=== PATIENT | male | born 1990 | race Caucasian/White ===

== ENCOUNTER 2018-07-25 22:57 | Inpatient (IN) | payer OTHER ==
--- NOTE | 2018-07-25 23:11 | EDPHY ---
H & P Time Seen by Provider: 07/25/18 23:03 HPI/ROS: Chief Complaint: Suicidal ideation, overdose HPI: 28-year-old male with a history of depression and feelings of hopelessness climbed up [place] this afternoon and took 20, 10 mg Vicodin tablets that he had taken from his grandfather. Patient states he took these at approximately 4:00 in the afternoon. This was an attempted suicide. Denies any other ingestions. He does states that he did count tablets. EMS was called and patient was brought down by [employer] rescue. Patient has been placed on a mental health hold by the [facility]. EMS did give a 0.25 of Narcan due to the patient's somnolence and he has been awake, alert and answering questions. Denies any other ingestions. Has a history of depression. He does take citalopram. Does not have a counselor or psychiatrist. States that he took these because he is "in a lot of pain" and does not want to be a burden to his family. ROS: 10 systems were reviewed and were negative except those elements noted in the HPI. PMH: Denies Social History: No smoking, occasional alcohol, no recreational drug use Family History: non-contributory Physical Exam: Gen: Awake, Alert, blunted affect HEENT: Nose: no rhinorrhea Eyes: PERRLA, EOMI Mouth: Moist mucosa Neck: Supple, no JVD Chest: nontender, lungs clear to auscultation Heart: S1, S2 normal, no murmur Abd: Soft, non-tender, no guarding Back: no CVA tenderness, no midline tenderness Ext: no edema, non-tender Skin: no rash Neuro: CN II-XII intact, Sensation grossly intact, Strength 5/5 in bilateral upper and lower extremities (Homer Santillan) Constitutional: Initial Vital Signs Temperature (C) 36.5 C 07/25/18 23:01 Heart Rate 82 07/25/18 23:01 Respiratory Rate 17 07/25/18 23:01 Blood Pressure 155/112 H 07/25/18 23:01 O2 Sat (%) 97 07/25/18 23:01 O2 Delivery Mode Room Air Allergies/Adverse Reactions: No Known Allergies Allergy (Verified 07/26/18 08:23) Home Medications: Medication Instructions Recorded Citalopram [CeleXA] 20 mg PO DAILY 07/25/18 Ascorbic Acid [Vitamin C 500 mg 500 mg PO DAILY 07/26/18 (*)] Glucosamine Sulfate [Glucosamine 500 mg PO DAILY 07/26/18 Sulfate 500 MG (*)] Multivitamins [Multivitamin (*)] 1 each PO DAILY 07/26/18 Calmar-3 Fatty Acids [Fish Oil 1000 1,000 mg PO DAILY 07/26/18 mg (*)] Vitamin B Complex [Vitamin B 1 each PO DAILY 07/26/18 Complex (OTC)] Medical Decision Making ED Course/Re-evaluation: 28-year-old suicidal male with a Vicodin ingestion 7 hr prior to arrival. Patient is very coughing about this time of ingestion. His 7 hr level is 40. The cut off on the Mia Cruz nomogram at hours is 90. He is well within the safe limits. A repeat Tylenol level less than 10. No evidence of toxicity. Patient is medically cleared for mental health evaluation. [address] patient signed out to Dr. Magana pending mental health evaluation. No issues during my care of this patient overnight. (Homer Santillan) Other Provider: Care assumed at 0642 ; evaluated by Dr. Santillan last night for overdose and per him deemed clinically stable for psychiatric evaluation and treatment, no further diagnostics or therapeutics. Plan this morning for mental health evaluation, on a mental health hold. 800: The patient will be transferred to [facility] for inpatient psychiatric hospital bed not available at this facility, in stable condition; accepting physician is Dr. Jose Haynes. EMTALA form completed. (Augie Magana) - Data Points Laboratory Results: Laboratory Results 07/25/18 23:16 07/25/18 23:16 07/26/18 07/26/18 07/25/18 04:00 03:10 23:16 WBC RBC Hgb Hct MCV MCH MCHC RDW Plt Count MPV Neut % (Auto) Lymph % (Auto) Burke % (Auto) Eos % (Auto) Baso % (Auto) Nucleat RBC Rel Count Absolute Neuts (auto) Absolute Lymphs (auto) Absolute Monos (auto) Absolute Eos (auto) Absolute Basos (auto) Absolute Nucleated RBC Immature Gran % Immature Gran # Sodium 142 mEq/L mEq/L (135-145) Potassium 4.0 mEq/L mEq/L (3.5-5.2) Chloride 105 mEq/L mEq/L (97-110) Carbon Dioxide 23 mEq/l mEq/l (22-31) Anion Gap 14 mEq/L mEq/L (6-14) BUN 15 mg/dL mg/dL (7-23) Creatinine 1.2 mg/dL mg/dL (0.7-1.3) Estimated GFR > 60 Glucose 135 mg/dL H mg/dL (70-100) Calcium 9.7 mg/dL mg/dL (8.5-10.4) Urine Opiates Screen NON-NEGATIVE H (NEGATIVE) Acetaminophen < 10 mcg/mL L mcg/mL 40 mcg/mL H mcg/mL (10-30) (10-30) Urine Barbiturates NEGATIVE (NEGATIVE) Ur Phencyclidine Scrn NEGATIVE (NEGATIVE) Ur Amphetamine Screen NEGATIVE (NEGATIVE) U Benzodiazepines Scrn NEGATIVE (NEGATIVE) Urine Cocaine Screen NEGATIVE (NEGATIVE) U Marijuana (THC) Screen NEGATIVE (NEGATIVE) Ethyl Alcohol < 10 mg/dL mg/dL (0-10) 07/25/18 23:16 WBC 12.98 10^3/uL H 10^3/uL (3.80-9.50) RBC 5.24 10^6/uL 10^6/uL (4.40-6.38) Hgb 16.1 g/dL g/dL (13.7-17.5) Hct 48.0 % % (40.0-51.0) MCV 91.6 fL fL (81.5-99.8) MCH 30.7 pg pg (27.9-34.1) MCHC 33.5 g/dL g/dL (32.4-36.7) RDW 12.9 % % (11.5-15.2) Plt Count 205 10^3/uL 10^3/uL (150-400) MPV 10.1 fL fL (8.7-11.7) Neut % (Auto) 82.5 % H % (39.3-74.2) Lymph % (Auto) 10.1 % L % (15.0-45.0) Burke % (Auto) 5.9 % % (4.5-13.0) Eos % (Auto) 0.5 % L % (0.6-7.6) Baso % (Auto) 0.5 % % (0.3-1.7) Nucleat RBC Rel Count 0.0 % % (0.0-0.2) Absolute Neuts (auto) 10.72 10^3/uL H 10^3/uL (1.70-6.50) Absolute Lymphs (auto) 1.31 10^3/uL 10^3/uL (1.00-3.00) Absolute Monos (auto) 0.76 10^3/uL 10^3/uL (0.30-0.80) Absolute Eos (auto) 0.06 10^3/uL 10^3/uL (0.03-0.40) Absolute Basos (auto) 0.06 10^3/uL 10^3/uL (0.02-0.10) Absolute Nucleated RBC 0.00 10^3/uL 10^3/uL (0-0.01) Immature Gran % 0.5 % % (0.0-1.1) Immature Gran # 0.07 10^3/uL 10^3/uL (0.00-0.10) Sodium Potassium Chloride Carbon Dioxide Anion Gap BUN Creatinine Estimated GFR Glucose Calcium Urine Opiates Screen Acetaminophen Urine Barbiturates Ur Phencyclidine Scrn Ur Amphetamine Screen U Benzodiazepines Scrn Urine Cocaine Screen U Marijuana (THC) Screen Ethyl Alcohol Departure - Departure Disposition: [facility] IP Clinical Impression: Severe major depression, Suicidal ideation Condition: Fair Referrals: Joelle Stroud MD [Medical Doctor] - As per Instructions
[2018-07-25 23:25] LABS: PLATELET COUNT 205 10^3/uL (150-400)
--- NOTE | 2018-07-26 11:01 | ASMTTCLDSP ---
TLC Discharge Disposition Disposition: Answers: Admit Disposition Notes: Notes: Admit 3N. Discharge Concerns/Recommendations: Notes: In consultation with [facility] ED physician, Augie Magana MD and on-call psychiatrist, Jose Haynes MD, both concurred that pt appears to meet 27-65 criteria requiring psychiatric hospitalization as pt appears to be an imminent risk of harm to self due to a mental illness condition. Pt was read the Patient Rights and Responsibilities Statement on 07/26/18 at 0800 hrs, original placed on chart, and was given photocopy of Rights. Pt signed the Patient Rights. Pt was given the 3N prohibited belongings list while in the ED. Was patient given the Answers: Yes Inpatient Behavioral Health Prohibited Belongings List while in the ED? For inpatient Jose Haynes MD admission, the following psychiatrist agreed to accept patient for admission to Behavioral Health ([facility]): Type of Hold: Answers: M1/72-hour Hold Hold initiated by: Answers: Police Date Signed: 07/26/2018 11:01 AM Electronically Signed By:Oneil Perdomo
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
[2018-07-26] MEDS ORDERED: MAGNESIUM HYDROXIDE 30 ML UDCUP PO PRN (11:38)
[2018-07-26] MEDS ORDERED: LORazepam 0.5 MG TAB PO PRN (11:38)
[2018-07-26] MEDS ORDERED: NICOTINE POLACRILEX 2 MG GUM B PRN (11:38)
[2018-07-26] MEDS ORDERED: MAG HYDROX/AL HYDROX/SIMETH 30 ML UDCUP PO PRN (11:38)
[2018-07-26] MEDS: ARIPiprazole 2 MG TAB PO SCH (12:34)
[2018-07-26] MEDS: ESCITALOPRAM OXALATE 10 MG TAB PO SCH (12:34)
[2018-07-26] MEDS ORDERED: ONDANSETRON DISINTEGRATING 4 MG TAB PO PRN (13:14)
--- NOTE | 2018-07-26 13:50 | BCON ---
[f rep ] BEHAVIORAL HEALTH CONSULTATION INTERNAL MEDICINE CONSULTATION DATE OF CONSULTATION: 07/26/2018 REFERRING PHYSICIAN: Dr. Haynes REASON FOR REFERRAL: Medical clearance for inpatient behavioral health stay. HISTORY OF PRESENT ILLNESS: This patient overdosed on Vicodin after drinking alcohol and then [place] the [place]. He had texted family to say goodbye. They contacted police. He was located via his cellphone. Additionally, he was found by other hikers. He was brought to the emergency department. He was mildly toxic on acetaminophen and had a positive urine drug screen for opiates. Over a period of hours, his acetaminophen level decreased to undetectable and he did not need treatment with N-acetylcysteine. He was evaluated by the mental health team and admitted for further psychiatric care. He currently complains of nausea. Reports he had multiple episodes of vomiting in the emergency department, and he reports loss of sensation and tingling at the ends of his great toes. He reports he had significant cold exposure. PAST MEDICAL HISTORY: 1. Concussion. 2. Depression. 3. Appendicitis at age 23. PAST SURGICAL HISTORY: 1. He had an appendectomy. 2. Bone spur removed from his right inner thigh at age 12. 3. [place] teeth extraction at age 20. MEDICATIONS: 1. Lexapro 20 mg daily which he was obtaining from his grandfather. 2. [place]-3 fatty acids 1000 mg p.o. daily. 3. Glucosamine 500 mg p.o. daily. 4. Vitamin B complex 1 p.o. daily. 5. Multivitamin 1 p.o. daily. 6. Ascorbic acid 500 mg p.o. daily. ALLERGIES: There are no known drug allergies. SOCIAL HISTORY: He lives with his grandfather. He drives for [employer]. He is a nonsmoker. He has a history of regular alcohol use but not for several months until yesterday when he had a significant amount of vodka. FAMILY HISTORY: Notable for drug addiction and mental illness. REVIEW OF SYSTEMS: Other than as in HPI, a 10-point review of systems was conducted and was negative. PHYSICAL EXAM: VITAL SIGNS: Blood pressure is 133/89, heart rate is 78, respiratory rate is 14, oxygen saturation is 95% on room air. Temperature is 36.8 degrees centigrade. His weight is 97.5 kg for a body mass index of 29.2. GENERAL: This is a well-nourished, well-developed man who does not appear obese or overweight and appears his chronologic age, dressed in a green hospital smock, cooperative, and in no acute distress. HEENT: Extraocular movements are intact. Pupils are equal, round, reactive to light. Mucous membranes are moist. Dentition is in good condition. He has an uncrowded airway, Mallampati class 1. NECK: Supple. HEART: There is a regular rate and rhythm with no murmurs, rubs, or gallops. LUNGS: Clear to auscultation bilaterally. ABDOMEN: Soft, nontender, nondistended with normoactive bowel sounds. EXTREMITIES: There is no cyanosis, clubbing, or edema. Dorsalis pedis pulses are 2+ bilaterally. NEUROLOGIC: He is alert and oriented x3. Cranial nerves 2 through 12 are grossly intact. There is no focal weakness. Gait is normal. Sensation overall is intact to light touch except for his medial distal great toes where sensation is reduced to light touch. LABORATORY STUDIES: Drawn yesterday. CBC revealed an elevated white blood cell count at 12.98. There was no left shift. It was predominantly neutrophils. Serum chemistry revealed normal renal function and electrolytes. Glucose was elevated at 135 but it may not have been fasting. Toxicology screen in the urine was significant for an acetaminophen level of 40. There was no detectable ethyl alcohol. Urine drug screen was non-negative for opiates but otherwise negative for substances of abuse. ASSESSMENT AND RECOMMENDATIONS: 1. Intentional overdose. He appears to have come through with no lasting sequelae. 2. Nausea with vomiting after his overdose. I have prescribed ondansetron with some caution due to risk for prolonged QT in conjunction with escitalopram. However, if he only needs 1 or 2 doses, this should not be a problem in an otherwise healthy young man. It could be that once his bowel status returns to normal with regular bowel movements, his nausea will improve. Maalox may also be useful which has been already prescribed. 3. Peripheral neuropathy. Likely due to cold exposure. Expect this to heal on its own. I see no medical contraindications to this patient's continued stay on the inpatient behavioral health unit or to any psychiatric medications or procedures. Thank you very much for including me in the care of this patient and please do not hesitate to contact me or the hospitalist service should there be need for further medical evaluation. /[id number]/MODL [id number]
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
--- NOTE | 2018-07-26 14:28 | PDMN ---
Medical Necessity Medical necessity: Pt meets inpt criteria per MD order and [facility] [id number], Major Depressive Disorder, Adult: Inpatient Care, 3 days. 28 y/o w/hx depression admitted on M1 hold due to suicide attempt, major depressive disorder, recurrent , severe, without psychosis and possible bipolar type 2 disorder w/hx cycling mood, alcohol and cannabis use disorders, requires inpt psychiatric hospitalization at this time as pt appears to be an imminent risk of harm to self due to mental illness condition.
--- NOTE | 2018-07-26 15:59 | ASMTBHMTP ---
Master Treatment Plan Master Treatment Plan Answers: Depressed Mood with for: Suicidal Ideation Date: 07/26/2018 Diagnosis on Admission: Major Depressive Disorder, recurrent, severe 296.33 (F33.2) Expected length of stay: 3-5 days Reason for admission: Notes: Per Report: Pt is a 28 yo, single, employed, male with reported past history of depression and social anxiety which began during his mid teen years, brought to [facility] ED by [employer] on M1 hold which noted: Marissa sent a suicidal text message to his family. His phone was pinged and his location was discovered. He was contacted by a hiker. Marissa took 20, 10 mg Vicodin pills. Marissa was trying to end his life. [place] by [employer] space officers. BAL level was zero upon arrival. UDS results were positive for opiates and Acetaminophen level at 2316 hrs was 40 then down below 10 at 0400 hrs. Pt appeared clean yet unkempt. He was polite and cooperative throughout the interview and provided meaningful responses to direct questions. He appeared to be a reliable historian. His mood is depressed and affect was flat. He endorsed anhedonia, self-depricating statements, feeling of worthlessness and hopelessness. He reported he was not anticipating surviving his suicide attempt. Patient's stated presenting problems: Notes: "[I] tried to complete suicide yesterday." Patient's goals for treatment: Notes: "to find a way to maintain a normal mood." Patient's strengths: Notes: none Identify supports outside of hospital: Notes: family in [place] Discharge criteria: Notes: Suicidal Ideation will resolve and patient will have a plan to safely manage recurrent suicidal ideations. Initial disposition plan/considerations: Notes: "go to my grandparents house in [facility]" Master Treatment Plan Required Signatures Psychiatrist signature: Answers: Psychiatrist: RN on-shift signature: Answers: RN: Patient signature: Answers: Patient: Date Signed: 07/26/2018 03:58 PM Electronically Signed By:Dg Baer
[2018-07-27] MEDS: ARIPiprazole 2 MG TAB PO SCH (08:16)
[2018-07-27] MEDS: ESCITALOPRAM OXALATE 10 MG TAB PO SCH (08:16)
--- NOTE | 2018-07-27 14:07 | ASMTCMCOM ---
CM Note CM Note Notes: Pt. reports "doing a lot better after talking to Dr. Haynes". Pt. shared about suffering from depression, and being "tired of going back forth". Pt. reports "feeling very positive about medications". Pt. reports speaking with his family recently. Pt. stated his family is "extremely supportive" adding he is "very grateful" for them. PT. reports he "need to be open and talking about how I'm feeling". Pt. stated today he "see a lof of hope". Pt. reports no issues with his current medications, adding he is "still constipated". Pt. reports sleeping "really good". Pt. reports getting the "perfect amount" of food at meals. Pt. reports attending two groups yesterday. Pe. denied SI, HI, AVH and paranoia. Pt. stated, if possible, to schedule his appointment after 10am any day of the week. Pt. presents as alert, calm, good eye contact, positive affect, polite, and cooperative. Staff report pt. sleeping 8 hours and being medication compliant CC obtained ROIs for [facility] and [facility]. CC to reach out for follow up appointments. Per provider, pt. will potentially discharge tomorrow 07/28/18 Date Signed: 07/27/2018 02:07 PM Electronically Signed By:Judy Álvarez
--- NOTE | 2018-07-27 15:31 | ASMTBHFAM ---
Notes Note: Notes: CC spoke with pt's sister, Merary SOC stated she is "really concerned" about her brother. SOC stated pt. made statements about how good he felt when he went into the mountains to commit suicide. SOC is worried pt with want that feeling again. SOC stated pt. will seem fine and happy and then "drop" into a depression and will be back to normal in "3-4 days". SOC stated pt's biggest concern is his job, as he is not able to hold a job. SOC stated pt. has "bad anxiety with working". SOC stated pt. lives with his grandparents, adding the pt. is embarrassed about this. SOC stated she is "debating" on having the pt. come live with her in [place], but has not spoken with the pt. about this. Date Signed: 07/27/2018 03:30 PM Electronically Signed By:Judy Álvarez
--- NOTE | 2018-07-27 16:39 | SOAPPROG ---
SOAP Progress Note Assessment/Plan: Assessment: Plan: 07/27/18 16:39 Mood: Much improved. CCM. Subjective: Pt seen, discussed with staff, interviewed in Treatment Team meeting. He reports feeling "a lot better" today. States he feels "really supported" by family, but still feels shame and guilt over being a burden to them. He is active in groups and states he is benefitting from therapies. He reports his suicidality as "zero" today. Tolerating meds well with no side effects after two doses. Objective: Vital Signs Temp Pulse Resp BP Pulse Ox 36.7 C 79 16 144/86 H 95 07/27/18 06:00 07/27/18 06:00 07/27/18 06:00 07/27/18 06:00 07/27/18 06:00 MSE: Calm, coop. Activity and speech are nl. Affect is euthymic, stable, approp. Mood is "good." TP is linear. TC reveals no psychosis. Denies current SI. - Time Spent With Patient Time Spent With Patient: 25" ICD10 Worksheet Patient Problems: Problems Problem Status Onset Severe major depression Acute Suicidal ideation Acute
[2018-07-28 07:03] VITALS: BP 128/81
[2018-07-28] MEDS: ESCITALOPRAM OXALATE 10 MG TAB PO SCH (08:35)
[2018-07-28] MEDS: ARIPiprazole 2 MG TAB PO SCH (08:35)
--- NOTE | 2018-07-28 14:24 | ASMTBHFAM ---
Notes Note: Notes: CC participated in a family meeting to discuss discharge plans. Present in the meeting were Dr. Haynes, ct., [facility] grandparents, uncle and sister (by phone). Family members appear very supportive of ct. Dr. Haynes discussed that the goal of treatment is to stabilized mood and that ct. is being medicated accordingly. Family discussed whys to communicate and support ct. Ct. reported that he is planning on seeking services at [facility]. He reported that he feels better and is more hopeful. Ct. is being discharge to the care of his family. Date Signed: 07/28/2018 02:23 PM Electronically Signed By:Odilia aVle
== END 2018-07-28 14:34 | disposition home or self-care (01) | DRG 885 ==
LOC: EDUNIT# → BBEH 07-26 09:40
PROVIDERS: ADMIT Psychiatry & Neurology Psychiatry; ATTEND Psychiatry & Neurology Psychiatry
DX: F33.2 Major depressive disorder, recurrent severe without psychotic features (principal); R45.851 Suicidal ideations
CPT/HCPCS: 80305; G0480